=== PATIENT | female | born 1960 | race Caucasian/White ===

== ENCOUNTER 2016-08-21 12:06 | Emergency (ER) | payer OTHER ==
[2016-08-21] MEDS ORDERED: IBUPROFEN 600 MG TABLET PO ONE (13:44)
--- NOTE | 2016-08-21 13:44 | ER Document Report ---
ED Medical Screen (RME) - General Chief Complaint: Abdominal Pain Stated Complaint: ABDOMINAL PAIN Mode of Arrival: Ambulatory Information source: Patient Notes: Patient is complaining of intermittent severe right flank pain with associated fever (Tmax 102) since yesterday. Pain was sudden onset. Pain is worse with gas and with BM. Pain radiates to back. Has history of diverticulitis on left side. She has noted changes to her BM but no melena or BRBRP or dark tarry stools. Associated symptoms urinary urgency, incontinence, nausea but denies vomiting. She has not eaten anything since yesterday. She has tried motrin 800 mg which did not take the pain away but did provide relief enough to sleep. TRAVEL OUTSIDE OF THE [place] IN LAST 30 DAYS: No - Related Data Allergies/Adverse Reactions: metronidazole [From Flagyl] Allergy (Severe, Verified 05/22/16 14:41) Metronidazole HCl [From Flagyl] Allergy (Severe, Verified 05/22/16 14:41) amoxicillin trihydrate [From Augmentin] Allergy (Verified 05/22/16 14:41) amphetamine sulfate [From Adderall] Allergy (Verified 05/22/16 14:41) ciprofloxacin [From Cipro] Allergy (Verified 05/22/16 14:41) desloratadine [From Clarinex] Allergy (Verified 05/22/16 14:41) dextroamphetamine [From Adderall] Allergy (Verified 05/22/16 14:41) fluticasone propionate [From Advair Diskus] Allergy (Verified 05/22/16 14:41) iodine [Iodine] Allergy (Verified 05/22/16 14:41) lisinopril [Lisinopril] Allergy (Verified 05/22/16 14:41) losartan [Losartan] Allergy (Verified 05/22/16 14:41) Potassium Clavulanate * [From Augmentin] Allergy (Verified 05/22/16 14:41) salmeterol xinafoate [From Advair Diskus] Allergy (Verified 05/22/16 14:41) Shellfish * [Shellfish] Allergy (Verified 05/22/16 14:41) oxymorphone HCl [From Opana] Adverse Reaction (Verified 05/22/16 14:41) aption Allergy (Uncoded 05/22/16 14:42) vicapro Adverse Reaction (Uncoded 05/22/16 14:41) Past Medical History - General Last Menstrual Period: in menapuase now with occasional irregular periods - Social History Frequency of alcohol use: None Drug Abuse: None - Past Medical History Cardiac Medical History: Reports: Hx Hypertension Denies: Hx Coronary Artery Disease, Hx Heart Attack Pulmonary Medical History: Reports: Hx Asthma Denies: Hx Bronchitis, Hx COPD, Hx Pneumonia Neurological Medical History: Reports: Hx Seizures. Denies: Hx Cerebrovascular Accident Endocrine Medical History: Reports: Hx Diabetes Mellitus Type 2 GI Medical History: Reports: Hx Gastroesophageal Reflux Disease, Hx Irritable Bowel Musculoskeltal Medical History: Reports Hx Arthritis - LEFT ANKLE ARTHRITIS/ LOWER BACK Psychiatric Medical History: Denies: Hx Depression Traumatic Medical History: Reports: Hx Fractures Past Surgical History: Reports: Hx Cholecystectomy - 2007, Hx Orthopedic Surgery - L leg surgery 2008, Hx Tubal Ligation. Denies: Hx Pacemaker - Immunizations Hx Diphtheria, Pertussis, Tetanus Vaccination: - PATIENT DENIES Review of Systems - Review of Systems Constitutional: See HPI Gastrointestinal: See HPI Genitourinary: See HPI Physical Exam - Vital signs Vitals: Temp Pulse Resp BP Pulse Ox 98.1 F 90 18 135/97 H 97 08/21/16 12:24 08/21/16 12:24 08/21/16 12:24 08/21/16 12:24 08/21/16 12:24 - Notes Notes: General: VSS, appears uncomfortable but no respiratory distress. Course - Re-evaluation Re-evalutation: 08/21/16 13:43 Patient seen and examined. Ordered urinalysis, lab work. Given PO motrin. - Vital Signs Vital signs: Temp Pulse Resp BP Pulse Ox 98.1 F 90 18 135/97 H 97 08/21/16 12:24 08/21/16 12:24 08/21/16 12:24 08/21/16 12:24 08/21/16 12:24
[2016-08-21 14:33] LABS: ABSOLUTE EOSINOPHILS # (AUTO) 0.1 10^3/uL (0.0-0.6); ABSOLUTE LYMPHOCYTES (AUTO) 2.6 10^3/uL (0.5-4.7); ABSOLUTE MONOCYTES (AUTO) 1.1 10^3/uL (0.1-1.4); ABSOLUTE NEUT (AUTO) 10.1 10^3/uL (1.7-8.2); BASOPHILS % (AUTO) 0.3 % (0-2); EOSINOPHILS % (AUTO) 0.5 % (0-6); HEMOGLOBIN 13.9 g/dL (12.0-15.5); HGB HCT DIFFERENCE 0.7; LYMPHOCYTES % (AUTO) 18.7 % (13-45); MEAN CORPUSCULAR HEMOGLOBIN 28.6 pg (27.0-33.4); MEAN CORPUSCULAR VOLUME 84 fl (80-97); MONOCYTES % (AUTO) 7.7 % (3-13); RED BLOOD COUNT 4.86 10^6/uL (3.72-5.28); RED CELL DISTRIBUTION WIDTH 14.4 % (11.5-14.0); SEGMENTED NEUTROPHILS % (AUTO) 72.8 % (42-78); WHITE BLOOD COUNT 13.9 10^3/uL (4.0-10.5)
[2016-08-21 14:39] LABS: APPEARANCE,URINE SLIGHTLY-CLOUDY; BILIRUBIN,URINE NEGATIVE (NEGATIVE); GLUCOSE, URINE NEGATIVE (NEGATIVE); KETONES,URINE NEGATIVE (NEGATIVE); LEUKOCYTE ESTERASE,URINE LARGE (NEGATIVE); NITRITE,URINE NEGATIVE (NEGATIVE); PROTEIN,URINE NEGATIVE (NEGATIVE); URINE SPECIFIC GRAVITY 1.017; UROBILINOGEN,URINE NEGATIVE mg/dL (<2.0)
[2016-08-21 14:52] LABS: ALANINE AMINOTRANSFERASE 46 U/L (9-52); ALBUMIN 4.2 g/dL (3.5-5.0); ALKALINE PHOSPHATASE 138 U/L (38-126); ANION GAP 15 (5-19); ASPARTATE AMINO TRANSFERASE 26 U/L (14-36); BILIRUBIN,TOTAL 0.8 mg/dL (0.2-1.3); BLOOD UREA NITROGEN 8 mg/dL (7-20); CALCIUM 9.2 mg/dL (8.4-10.2); CARBON DIOXIDE 28 mmol/L (22-30); CHLORIDE 100 mmol/L (98-107); CREATININE RESULT 0.85 mg/dL (0.52-1.25); GLUCOSE 129 mg/dL (75-110); LIPASE 34.2 U/L (23-300); POTASSIUM 4.1 mmol/L (3.6-5.0); SODIUM 142.5 mmol/L (137-145); TOTAL PROTEIN 7.3 g/dL (6.3-8.2)
--- NOTE | 2016-08-21 16:03 | ER Document Report ---
ED GI/ - General Mode of Arrival: Ambulatory Information source: Patient TRAVEL OUTSIDE OF THE [place] IN LAST 30 DAYS: No - HPI Patient complains to provider of: Abdominal pain Associated symptoms: Other - See above <ANGELICA CAMARGO - Last Filed: 08/21/16 16:34> <ANUM CLARK - Last Filed: 08/21/16 17:23> - General Chief Complaint: Abdominal Pain Stated Complaint: ABDOMINAL PAIN Notes: Patient is a 56 year old female, with a past medical history including diverticulitis and GERD, who presents to the emergency department complaining of abdominal pain onset yesterday afternoon. Patient reports that the pain began in her right upper quadrant and radiates into her lower abdomen and around her right lower back. Patient states that this pain has been occurring intermittently for about a year but today seems more intense. Patient also complains of a fever of 102 yesterday. PCP: DR. Sanz education analyst : Dr. Bob (ANGELICA CAMRAGO) - Related Data Allergies/Adverse Reactions: metronidazole [From Flagyl] Allergy (Severe, Verified 05/22/16 14:41) Metronidazole HCl [From Flagyl] Allergy (Severe, Verified 05/22/16 14:41) amoxicillin trihydrate [From Augmentin] Allergy (Verified 05/22/16 14:41) amphetamine sulfate [From Adderall] Allergy (Verified 05/22/16 14:41) ciprofloxacin [From Cipro] Allergy (Verified 05/22/16 14:41) desloratadine [From Clarinex] Allergy (Verified 05/22/16 14:41) dextroamphetamine [From Adderall] Allergy (Verified 05/22/16 14:41) fluticasone propionate [From Advair Diskus] Allergy (Verified 05/22/16 14:41) iodine [Iodine] Allergy (Verified 05/22/16 14:41) lisinopril [Lisinopril] Allergy (Verified 05/22/16 14:41) losartan [Losartan] Allergy (Verified 05/22/16 14:41) Potassium Clavulanate * [From Augmentin] Allergy (Verified 05/22/16 14:41) salmeterol xinafoate [From Advair Diskus] Allergy (Verified 05/22/16 14:41) Shellfish * [Shellfish] Allergy (Verified 05/22/16 14:41) oxymorphone HCl [From Opana] Adverse Reaction (Verified 05/22/16 14:41) aption Allergy (Uncoded 05/22/16 14:42) vicapro Adverse Reaction (Uncoded 05/22/16 14:41) Past Medical History - General Information source: Patient Last Menstrual Period: in menapuase now with occasional irregular periods - Social History Smoking Status: Never Smoker Frequency of alcohol use: None Drug Abuse: None Family History: Reviewed & Not Pertinent Patient has suicidal ideation: No Patient has homicidal ideation: No - Past Medical History Cardiac Medical History: Reports: Hx Hypertension Pulmonary Medical History: Reports: Hx Asthma Neurological Medical History: Reports: Hx Seizures Endocrine Medical History: Reports: Hx Diabetes Mellitus Type 2 GI Medical History: Reports: Hx Diverticulitis, Hx Gastroesophageal Reflux Disease, Hx Irritable Bowel Musculoskeltal Medical History: Reports Hx Arthritis - LEFT ANKLE ARTHRITIS/ LOWER BACK Traumatic Medical History: Reports: Hx Fractures Past Surgical History: Reports: Hx Cholecystectomy - 2007, Hx Orthopedic Surgery - L leg surgery 2008, Hx Tubal Ligation - Immunizations Hx Diphtheria, Pertussis, Tetanus Vaccination: - PATIENT DENIES <ANGELICA CAMARGO - Last Filed: 08/21/16 16:34> Review of Systems - Review of Systems Constitutional: See HPI, Fever EENT: No symptoms reported Cardiovascular: No symptoms reported Respiratory: No symptoms reported Gastrointestinal: See HPI, Abdominal pain Genitourinary: No symptoms reported Female Genitourinary: No symptoms reported Musculoskeletal: No symptoms reported Skin: No symptoms reported Hematologic/Lymphatic: No symptoms reported Neurological/Psychological: No symptoms reported -: Yes All other systems reviewed and negative <ANGELICA CAMARGO - Last Filed: 08/21/16 16:34> Physical Exam - Vital signs Interpretation: Normal - General General appearance: Appears well, Alert - HEENT Head: Normocephalic, Atraumatic - Respiratory Respiratory status: No respiratory distress Chest status: Nontender Breath sounds: Normal Chest palpation: Normal - Cardiovascular Rhythm: Regular Heart sounds: Normal auscultation Murmur: No - Abdominal Inspection: Obese Distension: No distension Bowel sounds: Normal Tenderness: Tender - Tenderness to palpation of right lower quadrant and McBurney's point, no tenderness to suprapubic area over bladder Organomegaly: No organomegaly - Back Back: Tender - Lumbar muscles on right side are tender to palpation, CVA percussion on right is non-tender. - Extremities General upper extremity: Normal inspection General lower extremity: Normal inspection - Neurological Neuro grossly intact: Yes Cognition: Normal Orientation: AAOx4 [place] Coma Scale Eye Opening: Spontaneous Jean Coma Scale Verbal: Oriented Jean Coma Scale Motor: Obeys Commands [place] Coma Scale Total: 15 Speech: Normal - Psychological Associated symptoms: Normal affect, Normal mood - Skin Skin Temperature: Warm Skin Moisture: Dry Skin Color: Normal <ANGELICA CAMARGO - Last Filed: 08/21/16 16:34> Course - Laboratory Result Diagrams: 08/21/16 14:20 08/21/16 14:20 <ANGELICA CAMARGO - Last Filed: 08/21/16 16:34> - Laboratory Result Diagrams: 08/21/16 14:20 08/21/16 14:20 - Diagnostic Test Radiology reviewed: Image reviewed, Reports reviewed - CT scan shows sigmoid diverticulitis <ANUM CLARK - Last Filed: 08/21/16 17:23> - Re-evaluation Re-evalutation: 08/21/16 17:[address] scan shows sigmoid diverticulitis. She was here in December 2015 with similar findings. She admits that she has been treated several more times for diverticulitis as an outpatient from the office. She has never been referred to general surgery for resection of the involved area. (AUNM CLARK) - Vital Signs Vital signs: Temp Pulse Resp BP Pulse Ox 98.1 F 90 18 135/97 H 97 08/21/16 12:24 08/21/16 12:24 08/21/16 12:24 08/21/16 12:24 08/21/16 12:24 (ANGELICA CAMARGO) (ANUM CLARK) - Laboratory Laboratory results interpreted by la: 08/21/16 08/21/16 08/21/16 14:20 14:20 14:20 WBC 13.9 H RDW 14.4 H Absolute Neutrophils 10.1 H Glucose 129 H Alkaline Phosphatase 138 H Ur Leukocyte Esterase LARGE H (ANGELICA CAMARGO) (ANUM CLARK) Discharge <ANGELICA CAMARGO - Last Filed: 08/21/16 16:34> <ANUM CLARK - Last Filed: 08/21/16 17:23> - Discharge Clinical Impression: Sigmoid diverticulitis Urinary tract infection Qualifiers: Urinary tract infection type: site unspecified Hematuria presence: without hematuria Qualified Code(s): N39.0 - Urinary tract infection, site not specified Condition: Stable Disposition: HOME, SELF-CARE Additional Instructions: Diverticulitis: You have been diagnosed as having diverticulitis. This is an inflammation of a small pouch attached to the colon, called a diverticulum. Many of these small pouches can form on the colon as you get older. They are often caused by constipation. When inflamed or infected, symptoms arise -- usually abdominal pain, constipation or diarrhea, fever, and blood in the stool. Severe diverticulitis may require hospitalization. More mild cases are usually treated with antibiotics and clear liquid diet. As you improve, a diet low in residue (one which forms little stool) is prescribed. When you are better, you should eat a high-fiber diet. Stool softeners ( like Metamucil) are usually recommended. Call the doctor or go to the hospital if there is increasing pain, vomiting , high fever, large amounts of blood passed, or if bowel movements cease. TAKE THE MEDICATIONS PRESCRIBED. DRINK PLENTY OF FLUIDS. FOLLOW UP WITH [facility] TO DISCUSS OPERATIVE MANAGEMENT OF YOUR RECURRENT DIVERTICULITIS. FOLLOW UP WITH DR. SANZ THIS WEEK FOR RECHECK. RETURN TO THE EMERGENCY ROOM IF ANY NEW OR WORSENING SYMPTOMS. Prescriptions: Clindamycin HCl 300 mg PO TID #30 capsule Oxycodone HCl/Acetaminophen [Percocet 5-325 mg Tablet] 1 - 2 tab PO ASDIR PRN # 20 tablet PRN Reason: Referrals: TELLO SANZ DO [Primary Care Provider] - Follow up in 3-5 days [place] Attestation: 08/21/16 17:23 I personally performed the services described in the documentation, reviewed and edited the documentation which was dictated to the scribe in my presence, and it accurately records my words and actions. (ANUM CLARK) Vinhibe Documentation - Scribe Written by Jaden:: Jaden Valderrama, 08/21/16, 16:15 <ANGELICA CAMARGO - Last Filed: 08/21/16 16:34>
[2016-08-21] MEDS ORDERED: KETOROLAC TROMETHAMINE INJ/PF 30 MG/1 ML SDV IV ONE (16:04)
[2016-08-21] MEDS ORDERED: NORMAL SALINE 1000 ML 1,000 ML IV ONE (16:04)
[2016-08-21] MEDS ORDERED: CLINDAMYCIN 600 MG/D5W RTU 50 ML IV ONE (17:18)
[2016-08-21 18:06] VITALS: BP 117/69
== END 2016-08-21 18:16 | disposition home or self-care (01) ==
LOC: ER 12:06
DX: K57.32 Diverticulitis of large intestine without perforation or abscess without bleeding (principal); N39.0 Urinary tract infection, site not specified; R10.9 Unspecified abdominal pain; K21.9 Gastro-esophageal reflux disease without esophagitis; R10.11 Right upper quadrant pain; R10.30 Lower abdominal pain, unspecified; M54.5 Low back pain; R50.9 Fever, unspecified
CPT/HCPCS: 99284; 96361; 96375; 96365; 36415; 87086; 83690; 85025; 80053; 81001; 76380; J1885; J7030

== ENCOUNTER 2016-11-13 10:01 | Day surgery (SDC) | payer OTHER ==
[~2016-11-13 10:01] MED LIST: PROPOFOL INJ 200 MG/20 ML VIAL IV ONE
[2016-11-13 11:53] VITALS: BP 123/52
--- NOTE | 2016-11-13 13:13 | Operative Report ---
Operative Report DATE OF SURGERY: 11/13/16 Operative Report: The risks, benefits and alternatives of the procedure including risks of bleeding, perforation requiring surgery I expended patient detail informed consents obtained. Patient is taken back to the endoscopy suite and placed in a left, lateral decubital position. Timeout is called. Propofol medication is administered. A rectal examination was done which did not reveal any masses, tears or fissures. An Olympus was scope is inserted the patient's rectum. The scope was then gradually advanced all the way to the cecum. The cecum was identified by the usual anatomical landmarks of the ileocecal valve as well as the appendiceal office. Photodocumentation is obtained. The scope was then sequentially pulled back via the rest segments of the colon including the ascending colon, hepatic flexure, transverse colon, splenic flexure, descending colon and finally into the rectosigmoid portions of the colon. Retroflexion maneuvers performed. PREOPERATIVE DIAGNOSIS: Personal history of polyps. Abdominal pain, generalized. Change of bowel habits POSTOPERATIVE DIAGNOSIS: Internal hemorrhoids. Diverticulosis without any evidence of diverticulitis. Right-sided mucosal inflammation status post biopsy rule out lymphocytic, collagenous, microscopic colitis. OPERATION: Colonoscopy with biopsy SURGEON: DELFINA HAMMONDS ANESTHESIA: LMAC TISSUE REMOVED OR ALTERED: Colon specimens obtained COMPLICATIONS: None. ESTIMATED BLOOD LOSS: none. INTRAOPERATIVE FINDINGS: As described above. PROCEDURE: Patient tolerated procedure well. No immediate postprocedure complications are noted. Patient is discharged in good condition. Discharge date 11/13/2016. Discharge diet: Regular. Discharge activity: Regular. 2-3 week follow-up to discuss findings. Five-year surveillance colonoscopy. We'll await on biopsies. Patient is instructed to call the office or proceed to the emergency room should there be any further problems or questions.
== END 2016-11-13 11:50 | disposition home or self-care (01) ==
LOC: END 10:01
PROVIDERS: ATTEND Internal Medicine Gastroenterology
PROC: 0DBF8ZX Excision of Right Large Intestine, Via Natural or Artificial Opening Endoscopic, Diagnostic (ICD-10-PCS; principal; 2016-11-13 11:30)
DX: K57.30 Diverticulosis of large intestine without perforation or abscess without bleeding (principal); K52.9 Noninfective gastroenteritis and colitis, unspecified; K64.8 Other hemorrhoids; Z86.010 Personal history of colon polyps; K76.0 Fatty (change of) liver, not elsewhere classified; I10 Essential (primary) hypertension; E11.9 Type 2 diabetes mellitus without complications
CPT/HCPCS: 45380; 82962; 88305 ×2; J2704; 810

== ENCOUNTER 2016-12-05 17:48 | Emergency (ER) | payer OTHER ==
--- NOTE | 2016-12-05 18:21 | ER Document Report ---
ED Medical Screen (RME) - General Chief Complaint: Chest Pain Stated Complaint: CHEST PAIN Time seen by provider: 18:18 Mode of Arrival: Ambulatory Information source: Patient TRAVEL OUTSIDE OF THE [place] IN LAST 30 DAYS: No - HPI Patient complains to provider of: chest pain, generalized weakness, possible seizures Onset: This morning Onset/Duration: Gradual Quality of pain: Achy Severity: Moderate Associated Symptoms: Body/muscle aches, Shortness of breath Exacerbated by: Denies Relieved by: Denies Similar symptoms previously: No Recently seen / treated by doctor: No Notes: 12/05/16 18:19 56-year-old female presents to emergency room complaining of 3 episodes of body jumping or jerking that occurred while in her sleep early in the morning this morning, and then throughout the day today she reports feeling "off", with generalized fatigue, some chest heaviness and nausea, patient has a history of seizure disorder as well as diabetes, hypertension, GERD - Related Data Allergies/Adverse Reactions: amoxicillin trihydrate [From Augmentin] Allergy (Severe, Verified 12/05/16 18:07 ) THROAT SWELLS AND BECOMES HOARSE amphetamine sulfate [From Adderall] Allergy (Severe, Verified 12/05/16 18:07) FACIAL SWELLING, LOST VOICE, THROAT SWELLING ciprofloxacin [From Cipro] Allergy (Severe, Verified 12/05/16 18:07) THROAT BECAME HOARSE,LOST VOICE, NUMBNESS metronidazole [From Flagyl] Allergy (Severe, Verified 12/05/16 18:07) THROAT BECAME HOARSE, LOST VOICE, THROAT SWELLS Metronidazole HCl [From Flagyl] Allergy (Severe, Verified 12/05/16 18:07) THROAT BECAME HOARSE, LOST VOICE, THROAT SWELLS desloratadine [From Clarinex] Allergy (Intermediate, Verified 12/05/16 18:07) EYES BURNING, ITCHING fluticasone propionate [From Advair Diskus] Allergy (Intermediate, Verified 18:07) HAIRY TONGUE, THROAT RAW Shellfish * [Shellfish] Allergy (Intermediate, Verified 12/05/16 18:07) THROAT SCRATCHY,SWELLING OF FACE, LIPS TINGLY lisinopril [Lisinopril] Allergy (Mild, Verified 12/05/16 18:07) TEETH AND TONGUE FELT FUNNY losartan [Losartan] Allergy (Mild, Verified 12/05/16 18:07) HOARSENESS iodine [Iodine] Allergy (Unknown, Verified 12/05/16 18:07) UNKNOWN dextroamphetamine [From Adderall] Allergy (Verified 12/05/16 18:07) Fish Containing Products Allergy (Verified 12/05/16 18:07) Potassium Clavulanate * [From Augmentin] Allergy (Verified 12/05/16 18:07) salmeterol xinafoate [From Advair Diskus] Allergy (Verified 12/05/16 18:07) oxymorphone HCl [From Opana] Adverse Reaction (Severe, Verified 12/05/16 18:07) VERY SICK aption Allergy (Severe, Uncoded 11/13/16 09:44) LOST VOICE, HOARSENESS, SEVERE SINUS PROBLEMS vicapro Adverse Reaction (Severe, Uncoded 11/13/16 09:44) MADE VERY SICK Past Medical History - Past Medical History Cardiac Medical History: Reports: Hx Hypertension Denies: Hx Coronary Artery Disease, Hx Heart Attack Pulmonary Medical History: Reports: Hx Asthma Denies: Hx Bronchitis, Hx COPD, Hx Pneumonia Neurological Medical History: Reports: Hx Seizures - LAST ONE MONTH AGO. Denies : Hx Cerebrovascular Accident Endocrine Medical History: Reports: Hx Diabetes Mellitus Type 2 Renal/ Medical History: Denies: Hx Peritoneal Dialysis GI Medical History: Reports: Hx Diverticulitis, Hx Gastroesophageal Reflux Disease, Hx Irritable Bowel Musculoskeltal Medical History: Reports Hx Arthritis - LEFT ANKLE ARTHRITIS/ LOWER BACK Psychiatric Medical History: Denies: Hx Depression Traumatic Medical History: Reports: Hx Fractures Past Surgical History: Reports: Hx Cholecystectomy - 2007, Hx Orthopedic Surgery - L leg surgery 2008, Hx Tubal Ligation. Denies: Hx Pacemaker - Immunizations Hx Diphtheria, Pertussis, Tetanus Vaccination: - PATIENT DENIES Physical Exam - Vital signs Vitals: Temp Pulse Resp BP Pulse Ox 97.2 F 78 16 146/75 H 98 12/05/16 18:04 12/05/16 18:04 12/05/16 18:04 12/05/16 18:04 12/05/16 18:04 Course - Vital Signs Vital signs: Temp Pulse Resp BP Pulse Ox 97.2 F 78 16 146/75 H 98 12/05/16 18:04 12/05/16 18:04 12/05/16 18:04 12/05/16 18:04 12/05/16 18:04
[2016-12-05 18:48] LABS: ABSOLUTE EOSINOPHILS # (AUTO) 0.2 10^3/uL (0.0-0.6); ABSOLUTE LYMPHOCYTES (AUTO) 2.9 10^3/uL (0.5-4.7); ABSOLUTE MONOCYTES (AUTO) 0.7 10^3/uL (0.1-1.4); ABSOLUTE NEUT (AUTO) 5.2 10^3/uL (1.7-8.2); BASOPHILS % (AUTO) 0.4 % (0-2); HEMATOCRIT 38.3 % (36.0-47.0); HEMOGLOBIN 13.1 g/dL (12.0-15.5); LYMPHOCYTES % (AUTO) 32.8 % (13-45); MEAN CORPUSCULAR HGB CONC 34.3 g/dL (32.0-36.0); MEAN CORPUSCULAR VOLUME 85 fl (80-97); MONOCYTES % (AUTO) 7.3 % (3-13); RED BLOOD COUNT 4.52 10^6/uL (3.72-5.28); RED CELL DISTRIBUTION WIDTH 13.7 % (11.5-14.0); SEGMENTED NEUTROPHILS % (AUTO) 57.5 % (42-78)
[2016-12-05 19:01] LABS: ALANINE AMINOTRANSFERASE 44 U/L (9-52); ALKALINE PHOSPHATASE 133 U/L (38-126); ANION GAP 13 (5-19); ASPARTATE AMINO TRANSFERASE 32 U/L (14-36); BILIRUBIN,DIRECT 0.3 mg/dL (0.0-0.4); BILIRUBIN,TOTAL 0.5 mg/dL (0.2-1.3); BLOOD UREA NITROGEN 10 mg/dL (7-20); CARBON DIOXIDE 27 mmol/L (22-30); CHLORIDE 102 mmol/L (98-107); CREATINE KINASE 43 U/L (30-135); CREATININE RESULT 0.78 mg/dL (0.52-1.25); GLUCOSE 170 mg/dL (75-110); MAGNESIUM 1.9 mg/dL (1.6-2.3); POTASSIUM 4.2 mmol/L (3.6-5.0); SODIUM 141.9 mmol/L (137-145); TOTAL PROTEIN 7.2 g/dL (6.3-8.2)
[2016-12-05 19:04] LABS: APPEARANCE,URINE SLIGHTLY-CLOUDY; BILIRUBIN,URINE NEGATIVE (NEGATIVE); GLUCOSE, URINE NEGATIVE (NEGATIVE); KETONES,URINE NEGATIVE (NEGATIVE); LEUKOCYTE ESTERASE,URINE MODERATE (NEGATIVE); NITRITE,URINE NEGATIVE (NEGATIVE); PROTEIN,URINE NEGATIVE (NEGATIVE); URINE SPECIFIC GRAVITY 1.006; UROBILINOGEN,URINE NEGATIVE mg/dL (<2.0)
[2016-12-05 19:15] LABS: CREATINE KINASE MB < 0.22 ng/mL (<4.55); TROPONIN I < 0.012 ng/mL
--- NOTE | 2016-12-05 19:32 | EKG REPORT ---
SEVERITY:- ABNORMAL ECG - SINUS RHYTHM NONSPECIFIC T ABNORMALITIES, ANTERIOR LEADS : Confirmed by: Guadalupe Guallpa MD 05-Dec-2016 19:31:25
--- NOTE | 2016-12-05 21:47 | ER Document Report ---
ED General - General Chief Complaint: Chest Pain Stated Complaint: CHEST PAIN Time seen by provider: 21:40 Mode of Arrival: Ambulatory Notes: Patient is a 56-year-old female that comes emergency department for several complaints, she states that she woke up this morning to feeling a jerking sensation of her body, states this happened a total of 3 times this morning and not happened since, she states she felt shaky earlier and states her body felt "a bit off" including her chest. She denies any chest pain, she states she felt a wave of nausea earlier which resolved, she states she just feels generally fatigued. She denies any shortness of breath. She denies any current symptoms, states now she feels great. She denies any fevers or chills. Past medical history of partial seizures, type II diabetes, hypertension, GERD , she does follow with neurology. TRAVEL OUTSIDE OF THE [place] IN LAST 30 DAYS: No - Related Data Allergies/Adverse Reactions: amoxicillin trihydrate [From Augmentin] Allergy (Severe, Verified 12/05/16 18:07 ) THROAT SWELLS AND BECOMES HOARSE amphetamine sulfate [From Adderall] Allergy (Severe, Verified 12/05/16 18:07) FACIAL SWELLING, LOST VOICE, THROAT SWELLING ciprofloxacin [From Cipro] Allergy (Severe, Verified 12/05/16 18:07) THROAT BECAME HOARSE,LOST VOICE, NUMBNESS metronidazole [From Flagyl] Allergy (Severe, Verified 12/05/16 18:07) THROAT BECAME HOARSE, LOST VOICE, THROAT SWELLS Metronidazole HCl [From Flagyl] Allergy (Severe, Verified 12/05/16 18:07) THROAT BECAME HOARSE, LOST VOICE, THROAT SWELLS desloratadine [From Clarinex] Allergy (Intermediate, Verified 12/05/16 18:07) EYES BURNING, ITCHING fluticasone propionate [From Advair Diskus] Allergy (Intermediate, Verified 18:07) HAIRY TONGUE, THROAT RAW Shellfish * [Shellfish] Allergy (Intermediate, Verified 12/05/16 18:07) THROAT SCRATCHY,SWELLING OF FACE, LIPS TINGLY lisinopril [Lisinopril] Allergy (Mild, Verified 12/05/16 18:07) TEETH AND TONGUE FELT FUNNY losartan [Losartan] Allergy (Mild, Verified 12/05/16 18:07) HOARSENESS iodine [Iodine] Allergy (Unknown, Verified 12/05/16 18:07) UNKNOWN dextroamphetamine [From Adderall] Allergy (Verified 12/05/16 18:07) Fish Containing Products Allergy (Verified 12/05/16 18:07) Potassium Clavulanate * [From Augmentin] Allergy (Verified 12/05/16 18:07) salmeterol xinafoate [From Advair Diskus] Allergy (Verified 12/05/16 18:07) oxymorphone HCl [From Opana] Adverse Reaction (Severe, Verified 12/05/16 18:07) VERY SICK aption Allergy (Severe, Uncoded 11/13/16 09:44) LOST VOICE, HOARSENESS, SEVERE SINUS PROBLEMS vicapro Adverse Reaction (Severe, Uncoded 11/13/16 09:44) MADE VERY SICK Past Medical History - General Information source: Patient - Social History Smoking Status: Never Smoker Frequency of alcohol use: None Drug Abuse: None Lives with: Family Family History: Reviewed & Not Pertinent Patient has suicidal ideation: No Patient has homicidal ideation: No - Past Medical History Cardiac Medical History: Reports: Hx Hypertension Denies: Hx Coronary Artery Disease, Hx Heart Attack Pulmonary Medical History: Reports: Hx Asthma Denies: Hx Bronchitis, Hx COPD, Hx Pneumonia Neurological Medical History: Reports: Hx Seizures - LAST ONE MONTH AGO. Denies : Hx Cerebrovascular Accident Endocrine Medical History: Reports: Hx Diabetes Mellitus Type 2 Renal/ Medical History: Denies: Hx Peritoneal Dialysis GI Medical History: Reports: Hx Diverticulitis, Hx Gastroesophageal Reflux Disease, Hx Irritable Bowel Musculoskeltal Medical History: Reports Hx Arthritis - LEFT ANKLE ARTHRITIS/ LOWER BACK Psychiatric Medical History: Denies: Hx Depression Traumatic Medical History: Reports: Hx Fractures Past Surgical History: Reports: Hx Cholecystectomy - 2007, Hx Orthopedic Surgery - L leg surgery 2008, Hx Tubal Ligation. Denies: Hx Pacemaker - Immunizations Hx Diphtheria, Pertussis, Tetanus Vaccination: - PATIENT DENIES Review of Systems - Review of Systems Constitutional: See HPI EENT: No symptoms reported Cardiovascular: See HPI Respiratory: No symptoms reported Gastrointestinal: No symptoms reported Genitourinary: No symptoms reported Female Genitourinary: No symptoms reported Musculoskeletal: See HPI Skin: No symptoms reported Hematologic/Lymphatic: No symptoms reported Neurological/Psychological: See HPI Physical Exam - Vital signs Vitals: Temp Pulse Resp BP Pulse Ox 97.2 F 78 16 146/75 H 98 12/05/16 18:04 12/05/16 18:04 12/05/16 18:04 12/05/16 18:04 12/05/16 18:04 Interpretation: Normal - General General appearance: Appears well, Alert In distress: None - HEENT Head: Normocephalic, Atraumatic Eyes: Normal Conjunctiva: Normal Extraocular movements intact: Yes Eyelashes: Normal Pupils: PERRL Nasal: Normal Mouth/Lips: Normal Mucous membranes: Normal Pharynx: Normal Neck: Normal - Respiratory Respiratory status: No respiratory distress Chest status: Nontender Breath sounds: Normal. No: Decreased air movement, Wheezing Chest palpation: Normal - Cardiovascular Rhythm: Regular. No: Tachycardia Heart sounds: Normal auscultation, S1 appreciated, S2 appreciated Murmur: No - Abdominal Inspection: Normal Distension: No distension Bowel sounds: Normal Tenderness: Nontender. No: Tender, Guarding Organomegaly: No organomegaly - Back Back: Normal, Nontender. No: Tender - Extremities General upper extremity: Normal inspection, Nontender, Normal color, Normal ROM , Normal temperature General lower extremity: Normal inspection, Nontender, Normal color, Normal ROM , Normal temperature, Normal weight bearing. No: Fercho's sign - Neurological Neuro grossly intact: Yes Cognition: Normal Orientation: AAOx4 Jean Coma Scale Eye Opening: Spontaneous Jean Coma Scale Verbal: Oriented Jean Coma Scale Motor: Obeys Commands Jean Coma Scale Total: 15 Speech: Normal Cranial nerves: Normal Cerebellar coordination: Normal Motor strength normal: LUE, RUE, LLE, RLE Additional motor exam normals: Equal top coater Sensory: Normal - Psychological Associated symptoms: Normal affect, Normal mood - Skin Skin Temperature: Warm Skin Moisture: Dry Skin Color: Normal Course - Re-evaluation Re-evalutation: 12/05/16 21:53 EKG showing sinus rhythm, no ST segment changes, Anterior T-wave inversions again present. Patient actually with very vague nonspecific complaints, does not complain of any chest pain or symptoms suggesting ACS, PE, or CVA. Normal neurological exam. Pelvic, alert, talkative. CBC, chemistry, chest x-ray with no acute abnormalities. Patient with soft benign abdomen, no neurological deficits, no current complaints. Urinalysis shows moderate leukocyte esterase with white blood cells, no bacteria, nitrates noted, urine culture placed. I discussed with patient, she states she struggles with this frequently, patient also states that she is being treated for irritable bowel currently. Result patient will be placed on Macrobid for a few days. Patient has he has good follow-up with neurology, gastroenterology, primary care. Discussed all workup details, discussed return precautions, at this point. She will be discharged for follow-up. Patient and significant other state satisfaction and agreement. - Vital Signs Vital signs: Temp Pulse Resp BP Pulse Ox 97.2 F 72 16 118/47 L 94 12/05/16 18:04 12/05/16 22:01 12/05/16 22:01 12/05/16 22:01 12/05/16 22:01 - Laboratory Result Diagrams: 12/05/16 18:25 12/05/16 18:25 Laboratory results interpreted by me: 12/05/16 12/05/16 18:25 18:25 Glucose 170 H Alkaline Phosphatase 133 H Ur Leukocyte Esterase MODERATE H Discharge - Discharge Clinical Impression: Shakes, Abnormal urinalysis Condition: Stable Disposition: HOME, SELF-CARE Additional Instructions: Your evaluation and laboratory workup does not show any acute findings. Your urinalysis again shows white blood cells and leukocyte esterase, we have a culture growing in our lab, take the Macrobid as directed. Follow-up with neurology for additional evaluation and treatment. Return to emergency department for any concerning or worsening symptoms including numbness or weakness on one side, fever, chest pain, vomiting, etc. Prescriptions: Nitrofurantoin/Nitrofuran Mac [Macrobid 100 mg Capsule] 1 tab PO BID #6 capsule Referrals: TELLO BURKS DO [Primary Care Provider] - Follow up as needed
[2016-12-05] MEDS ORDERED: NITROFURANTOIN MONOHYD/M-CRYST 100 MG CAPSULE PO ONE (21:53)
[2016-12-05 22:01] VITALS: BP 118/47
== END 2016-12-05 22:00 | disposition home or self-care (01) ==
LOC: ER 17:48
DX: R25.8 Other abnormal involuntary movements (principal); R82.99 Other abnormal findings in urine; R09.89 Other specified symptoms and signs involving the circulatory and respiratory systems; R53.83 Other fatigue; K58.9 Irritable bowel syndrome, unspecified; I10 Essential (primary) hypertension; E11.9 Type 2 diabetes mellitus without complications; J45.909 Unspecified asthma, uncomplicated; Z88.0 Allergy status to penicillin; Z88.8 Allergy status to other drugs, medicaments and biological substances; Z88.1 Allergy status to other antibiotic agents; Z91.013 Allergy to seafood
CPT/HCPCS: 93005; 99285; 36415; 87086; 82553; 82550; 83735; 85025; 80053; 81001; 84484; 71020; 93010; J8499

== ENCOUNTER → 2018-03-26 | Outpatient (CLI) | payer OTHER ==
--- NOTE | 2018-03-26 16:57 | RADIOLOGY REPORT (SQ) ---
EXAM DESCRIPTION: CHEST PA/LATERAL COMPLETED DATE/TIME: 03/26/2018 4:39 pm REASON FOR STUDY: PLEURODYNIA COMPARISON: None. EXAM PARAMETERS: NUMBER OF VIEWS: two views TECHNIQUE: Digital Frontal and Lateral radiographic views of the chest acquired. RADIATION DOSE: NA LIMITATIONS: none FINDINGS: LUNGS AND PLEURA: No opacities, masses or pneumothorax. No pleural effusion. MEDIASTINUM AND HILAR STRUCTURES: No masses or contour abnormalities. HEART AND VASCULAR STRUCTURES: Heart normal size. No evidence for failure. BONES: No acute findings. HARDWARE: None in the chest. OTHER: No other significant finding. IMPRESSION: NO SIGNIFICANT RADIOGRAPHIC FINDING IN THE CHEST. TECHNICAL DOCUMENTATION: JOB ID: [id number] [employer] [place]- All Rights Reserved Reading location - IP/workstation name: [email or web address]
== END ==
LOC: OD 16:28
PROVIDERS: ATTEND Family Medicine
DX: R07.81 Pleurodynia (principal)
CPT/HCPCS: 71046

== ENCOUNTER 2018-10-20 15:49 | Emergency (ER) | payer OTHER ==
--- NOTE | 2018-10-20 16:22 | ER Document Report ---
ED Medical Screen (RME) - General Chief Complaint: Chest Pain Stated Complaint: CHEST AND BACK PAIN Time Seen by Provider: 10/20/18 16:21 Primary Care Provider: TELLO BURKS DO [Primary Care Provider] - Follow up as needed Mode of Arrival: Ambulatory Information source: Patient TRAVEL OUTSIDE OF THE [place] IN LAST 30 DAYS: No - HPI Patient complains to provider of: cp Onset: Yesterday - pt with onset of SSCP for the past 2 days. Took ASA this am - Related Data Allergies/Adverse Reactions: amoxicillin trihydrate [From Augmentin] Allergy (Severe, Verified 12/05/16 18:07) THROAT SWELLS AND BECOMES HOARSE amphetamine sulfate [From Adderall] Allergy (Severe, Verified 12/05/16 18:07) FACIAL SWELLING, LOST VOICE, THROAT SWELLING ciprofloxacin [From Cipro] Allergy (Severe, Verified 12/05/16 18:07) THROAT BECAME HOARSE,LOST VOICE, NUMBNESS metronidazole [From Flagyl] Allergy (Severe, Verified 12/05/16 18:07) THROAT BECAME HOARSE, LOST VOICE, THROAT SWELLS Metronidazole HCl [From Flagyl] Allergy (Severe, Verified 12/05/16 18:07) THROAT BECAME HOARSE, LOST VOICE, THROAT SWELLS desloratadine [From Clarinex] Allergy (Intermediate, Verified 12/05/16 18:07) EYES BURNING, ITCHING fluticasone propionate [From Advair Diskus] Allergy (Intermediate, Verified 12/05/16 18:07) HAIRY TONGUE, THROAT RAW Shellfish * [Shellfish] Allergy (Intermediate, Verified 12/05/16 18:07) THROAT SCRATCHY,SWELLING OF FACE, LIPS TINGLY lisinopril [Lisinopril] Allergy (Mild, Verified 12/05/16 18:07) TEETH AND TONGUE FELT FUNNY losartan [Losartan] Allergy (Mild, Verified 12/05/16 18:07) HOARSENESS iodine [Iodine] Allergy (Unknown, Verified 12/05/16 18:07) UNKNOWN dextroamphetamine [From Adderall] Allergy (Verified 12/05/16 18:07) Fish Containing Products Allergy (Verified 12/05/16 18:07) Potassium Clavulanate * [From Augmentin] Allergy (Verified 12/05/16 18:07) salmeterol xinafoate [From Advair Diskus] Allergy (Verified 12/05/16 18:07) oxymorphone HCl [From Opana] Adverse Reaction (Severe, Verified 12/05/16 18:07) VERY SICK aption Allergy (Severe, Uncoded 11/13/16 09:44) LOST VOICE, HOARSENESS, SEVERE SINUS PROBLEMS vicapro Adverse Reaction (Severe, Uncoded 11/13/16 09:44) MADE VERY SICK Past Medical History - Past Medical History Cardiac Medical History: Reports: Hx Hypertension Denies: Hx Coronary Artery Disease, Hx Heart Attack Pulmonary Medical History: Reports: Hx Asthma Denies: Hx Bronchitis, Hx COPD, Hx Pneumonia Neurological Medical History: Reports: Hx Seizures. Denies: Hx Cerebrovascular Accident Endocrine Medical History: Reports: Hx Diabetes Mellitus Type 2 Renal/ Medical History: Denies: Hx Peritoneal Dialysis GI Medical History: Reports: Hx Diverticulitis, Hx Gastroesophageal Reflux Disease, Hx Irritable Bowel Musculoskeltal Medical History: Reports Hx Arthritis - LEFT ANKLE ARTHRITIS/LOWER BACK Psychiatric Medical History: Denies: Hx Depression Traumatic Medical History: Reports: Hx Fractures Past Surgical History: Reports: Hx Cholecystectomy - 2007, Hx Orthopedic Surgery - L leg surgery 2008, Hx Tubal Ligation. Denies: Hx Pacemaker - Immunizations Hx Diphtheria, Pertussis, Tetanus Vaccination: - PATIENT DENIES Physical Exam - Vital signs Vitals: Temp Pulse Resp BP Pulse Ox 98.2 F 74 18 134/67 H 94 10/20/18 16:08 10/20/18 16:08 10/20/18 16:08 10/20/18 16:08 10/20/18 16:08 Course - Vital Signs Vital signs: Temp Pulse Resp BP Pulse Ox 98.2 F 74 18 134/67 H 94 10/20/18 16:08 10/20/18 16:08 10/20/18 16:08 10/20/18 16:08 10/20/18 16:08 Doctor's Discharge - Discharge Referrals: TELLO BURKS DO [Primary Care Provider] - Follow up as needed
[2018-10-20 16:56] LABS: ABSOLUTE EOSINOPHILS # (AUTO) 0.2 10^3/uL (0.0-0.6); ABSOLUTE LYMPHOCYTES (AUTO) 2.8 10^3/uL (0.5-4.7); ABSOLUTE MONOCYTES (AUTO) 0.6 10^3/uL (0.1-1.4); ABSOLUTE NEUT (AUTO) 6.1 10^3/uL (1.7-8.2); BASOPHILS % (AUTO) 0.5 % (0-2); EOSINOPHILS % (AUTO) 2.5 % (0-6); HEMATOCRIT 40.3 % (36.0-47.0); HEMOGLOBIN 13.6 g/dL (12.0-15.5); LYMPHOCYTES % (AUTO) 28.6 % (13-45); MEAN CORPUSCULAR HEMOGLOBIN 28.6 pg (27.0-33.4); MEAN CORPUSCULAR HGB CONC 33.7 g/dL (32.0-36.0); MEAN CORPUSCULAR VOLUME 85 fl (80-97); MONOCYTES % (AUTO) 5.8 % (3-13); PLATELET COUNT 337 10^3/uL (150-450); RED BLOOD COUNT 4.75 10^6/uL (3.72-5.28); SEGMENTED NEUTROPHILS % (AUTO) 62.6 % (42-78); TOTAL CELLS COUNTED % (AUTO) 100 %; WHITE BLOOD COUNT 9.7 10^3/uL (4.0-10.5)
--- NOTE | 2018-10-20 16:57 | RADIOLOGY REPORT (SQ) ---
EXAM DESCRIPTION: CHEST 2 VIEWS COMPLETED DATE/TIME: 10/20/2018 4:50 pm REASON FOR STUDY: cp COMPARISON: 12/05/2016 EXAM PARAMETERS: NUMBER OF VIEWS: two views TECHNIQUE: Digital Frontal and Lateral radiographic views of the chest acquired. RADIATION DOSE: NA LIMITATIONS: none FINDINGS: LUNGS AND PLEURA: No opacities, masses or pneumothorax. No pleural effusion. MEDIASTINUM AND HILAR STRUCTURES: No masses or contour abnormalities. HEART AND VASCULAR STRUCTURES: Heart normal size. No evidence for failure. BONES: No acute findings. HARDWARE: None in the chest. OTHER: No other significant finding. IMPRESSION: NO ACUTE RADIOGRAPHIC FINDING IN THE CHEST. TECHNICAL DOCUMENTATION: JOB ID: [id number] [employer]- All Rights Reserved Reading location - IP/workstation name: [email or web address]
[2018-10-20 17:11] LABS: ALANINE AMINOTRANSFERASE 36 U/L (9-52); ALBUMIN 4.1 g/dL (3.5-5.0); ALKALINE PHOSPHATASE 148 U/L (38-126); ANION GAP 10 (5-19); ASPARTATE AMINO TRANSFERASE 28 U/L (14-36); BILIRUBIN,DIRECT 0.2 mg/dL (0.0-0.4); BILIRUBIN,TOTAL 0.2 mg/dL (0.2-1.3); BLOOD UREA NITROGEN 10 mg/dL (7-20); CALCIUM 9.3 mg/dL (8.4-10.2); CARBON DIOXIDE 29 mmol/L (22-30); CHLORIDE 103 mmol/L (98-107); CREATINE KINASE 32 U/L (30-135); GLUCOSE 111 mg/dL (75-110); POTASSIUM 4.7 mmol/L (3.6-5.0); SODIUM 141.6 mmol/L (137-145)
[2018-10-20 17:36] LABS: CREATINE KINASE MB < 0.22 ng/mL (<4.55); TROPONIN I < 0.012 ng/mL
[2018-10-20] MEDS ORDERED: DIPHENHYDRAMINE HCL 50 MG/ML VIAL IV ONE (19:45)
--- NOTE | 2018-10-20 20:58 | RADIOLOGY REPORT (SQ) ---
CT CHEST ANGIOGRAPHY WITHOUT THEN WITH IV CONTRAST HISTORY: Shortness of breath. COMPARISON: None. TECHNIQUE: CT angiogram of the chest with IV contrast. 3-D MIP images were obtained in coronal and sagittal reconstructions. This exam was performed according to our departmental dose-optimization program, which includes automated exposure control, adjustment of the mA and/or kV according to patient size and/or use of iterative reconstruction technique. FINDINGS: No filling defects are identified in the pulmonary trunk, main left and right pulmonary arteries, or the segmental branches. No aortic aneurysm or dissection is seen. The thyroid gland is normal. No mediastinal or hilar adenopathy. The heart size is normal without pericardial effusion. No consolidation, pleural effusion, or pneumothorax is identified. The visualized upper abdomen demonstrates cholecystectomy clips but no acute findings. There are mild degenerative changes of the spine. IMPRESSION: No acute pulmonary embolism.
--- NOTE | 2018-10-20 21:38 | ER Document Report ---
ED General - General Chief Complaint: Chest Pain Stated Complaint: CHEST AND BACK PAIN Time Seen by Provider: 10/20/18 16:21 Primary Care Provider: TELLO SANZ DO [Primary Care Provider] - 10/22/18 Mode of Arrival: Ambulatory Information source: Patient Notes: This is a 58-year-old female who presents to the emergency room with chest wall discomfort for the past 2 days. Patient states that the pain is worse with deep inspiration. Patient states that the pain is worse with movement and cough. Patient looks visibly uncomfortable when moving to get out of the stretcher. TRAVEL OUTSIDE OF THE [place] IN LAST 30 DAYS: No - HPI Onset: Last week Onset/Duration: Gradual Quality of pain: Sharp Severity: Moderate Pain Level: 2 Associated symptoms: Other - Chest wall pain. denies: Chest pain, Fever, Shortness of breath Exacerbated by: Movement Relieved by: Denies Similar symptoms previously: Yes Recently seen / treated by doctor: No - Related Data Allergies/Adverse Reactions: amoxicillin trihydrate [From Augmentin] Allergy (Severe, Verified 12/05/16 18:07) THROAT SWELLS AND BECOMES HOARSE amphetamine sulfate [From Adderall] Allergy (Severe, Verified 12/05/16 18:07) FACIAL SWELLING, LOST VOICE, THROAT SWELLING ciprofloxacin [From Cipro] Allergy (Severe, Verified 12/05/16 18:07) THROAT BECAME HOARSE,LOST VOICE, NUMBNESS metronidazole [From Flagyl] Allergy (Severe, Verified 12/05/16 18:07) THROAT BECAME HOARSE, LOST VOICE, THROAT SWELLS Metronidazole HCl [From Flagyl] Allergy (Severe, Verified 12/05/16 18:07) THROAT BECAME HOARSE, LOST VOICE, THROAT SWELLS desloratadine [From Clarinex] Allergy (Intermediate, Verified 12/05/16 18:07) EYES BURNING, ITCHING fluticasone propionate [From Advair Diskus] Allergy (Intermediate, Verified 12/05/16 18:07) HAIRY TONGUE, THROAT RAW Shellfish * [Shellfish] Allergy (Intermediate, Verified 12/05/16 18:07) THROAT SCRATCHY,SWELLING OF FACE, LIPS TINGLY lisinopril [Lisinopril] Allergy (Mild, Verified 12/05/16 18:07) TEETH AND TONGUE FELT FUNNY losartan [Losartan] Allergy (Mild, Verified 12/05/16 18:07) HOARSENESS iodine [Iodine] Allergy (Unknown, Verified 12/05/16 18:07) UNKNOWN dextroamphetamine [From Adderall] Allergy (Verified 12/05/16 18:07) Fish Containing Products Allergy (Verified 12/05/16 18:07) Potassium Clavulanate * [From Augmentin] Allergy (Verified 12/05/16 18:07) salmeterol xinafoate [From Advair Diskus] Allergy (Verified 12/05/16 18:07) oxymorphone HCl [From Opana] Adverse Reaction (Severe, Verified 12/05/16 18:07) VERY SICK aption Allergy (Severe, Uncoded 11/13/16 09:44) LOST VOICE, HOARSENESS, SEVERE SINUS PROBLEMS vicapro Adverse Reaction (Severe, Uncoded 11/13/16 09:44) MADE VERY SICK Past Medical History - General Information source: Patient - Social History Smoking Status: Former Smoker Cigarette use (# per day): No Chew tobacco use (# tins/day): No Frequency of alcohol use: None Drug Abuse: None Lives with: Spouse/Significant other Family History: Reviewed & Not Pertinent Patient has suicidal ideation: No Patient has homicidal ideation: No - Past Medical History Cardiac Medical History: Reports: Hx Hypertension Denies: Hx Coronary Artery Disease, Hx Heart Attack Pulmonary Medical History: Reports: Hx Asthma Denies: Hx Bronchitis, Hx COPD, Hx Pneumonia Neurological Medical History: Reports: Hx Seizures. Denies: Hx Cerebrovascular Accident Endocrine Medical History: Reports: Hx Diabetes Mellitus Type 2 Renal/ Medical History: Denies: Hx Peritoneal Dialysis GI Medical History: Reports: Hx Diverticulitis, Hx Gastroesophageal Reflux Di sease, Hx Irritable Bowel Musculoskeletal Medical History: Reports Hx Arthritis - LEFT ANKLE ARTHRITIS/LOWER BACK Psychiatric Medical History: Denies: Hx Depression Traumatic Medical History: Reports: Hx Fractures Past Surgical History: Reports: Hx Cholecystectomy - 2007, Hx Orthopedic Surgery - L leg surgery 2008, Hx Tubal Ligation. Denies: Hx Pacemaker - Immunizations Hx Diphtheria, Pertussis, Tetanus Vaccination: - PATIENT DENIES Review of Systems - Review of Systems Constitutional: denies: Chills, Fever EENT: No symptoms reported Cardiovascular: denies: Palpitations, Heart racing, Orthopnea, Syncope Respiratory: denies: Cough, Short of breath, Wheezing Gastrointestinal: denies: Abdominal pain, Vomiting Genitourinary: No symptoms reported Female Genitourinary: No symptoms reported Musculoskeletal: See HPI Skin: No symptoms reported Hematologic/Lymphatic: No symptoms reported Neurological/Psychological: No symptoms reported Physical Exam - Vital signs Vitals: Temp Pulse Resp BP Pulse Ox 98.2 F 74 18 134/67 H 94 10/20/18 16:08 10/20/18 16:08 10/20/18 16:08 10/20/18 16:08 10/20/18 16:08 Notes: Physical exam: GENERAL: Patient is alert and oriented x3, no acute distress. Patient does complain of pain when moving her torso and bending to get up out of the stretcher to go to the bathroom. Patient's oxygen saturation is 100% on room air. HEAD: Atraumatic, normocephalic. EYES: Pupils equal round and reactive to light, extraocular movements intact, sclera anicteric, conjunctiva are normal. ENT: TMs normal, nares patent, oropharynx clear without exudates. Moist mucous membranes. NECK: Normal range of motion, supple without obvious mass or JVD. LUNGS: Breath sounds clear to auscultation bilaterally and equal. No wheezes rales or rhonchi. Chest wall: Patient does have tenderness to palpation on the anterior chest wall. HEART: Regular rate and rhythm without murmurs, rubs or gallops. ABDOMEN: Soft, normoactive bowel sounds. No tenderness to palpation. No guarding, no rebound. No masses appreciated. EXTREMITIES: Normal range of motion, no pitting or edema. No clubbing or cyanos is. NEUROLOGICAL: Cranial nerves II through XII grossly intact. Normal speech, moving all extremities. PSYCH: Normal mood, normal affect. SKIN: Warm, Dry, normal turgor, no rashes or lesions noted. Course - Vital Signs Vital signs: Temp Pulse Resp BP Pulse Ox 98.2 F 74 19 137/85 H 96 10/20/18 16:08 10/20/18 16:08 10/20/18 21:00 10/20/18 20:01 10/20/18 21:00 - Laboratory Result Diagrams: 10/20/18 16:40 10/20/18 16:40 Laboratory results interpreted by me: 10/20/18 16:40 Glucose 111 H Alkaline Phosphatase 148 H - Diagnostic Test Radiology reviewed: Image reviewed, Reports reviewed - CTA shows no evidence of acute pulmonary emboli - EKG Interpretation by Me Rhythm: NSR - EKG shows sinus rhythm with a ventricular rate of 62, no T wave/ST changes compared with EKG November 25, 2016 Discharge - Discharge Clinical Impression: Chest wall pain Condition: Stable Disposition: HOME, SELF-CARE Additional Instructions: As we discussed your EKG looked good tonight. Your heart enzymes remain negat celine. Your chest CT showed no evidence of blood clots. I do think you have got inflammation of the chest wall. Take the medicine as prescribed. Do not take ibuprofen when taking the Arthrotec. Continue with your other medicines. I would like you to follow-up with Dr. Sanz in 2-3 days for repeat evaluation. Return to the emergency room for worsening pain. Prescriptions: Diclofenac Sodium/Misoprostol [Arthrotec 50 Ec Tablet] 1 each PO BID #30 tablet. Referrals: TELLO SANZ DO [Primary Care Provider] - 10/22/18
[2018-10-20 21:53] VITALS: BP 143/87
--- NOTE | 2018-10-20 22:50 | EKG REPORT ---
SEVERITY:- ABNORMAL ECG - SINUS RHYTHM NONSPECIFIC T ABNORMALITIES, ANT-LAT LEADS : Confirmed by: Jm Pradhan 20-Oct-2018 22:49:41
== END 2018-10-20 21:53 | disposition home or self-care (01) ==
LOC: ER 15:49
DX: R07.89 Other chest pain (principal); I10 Essential (primary) hypertension; E11.9 Type 2 diabetes mellitus without complications; J45.909 Unspecified asthma, uncomplicated; Z88.0 Allergy status to penicillin; Z88.8 Allergy status to other drugs, medicaments and biological substances; Z88.1 Allergy status to other antibiotic agents; Z91.013 Allergy to seafood; Z87.891 Personal history of nicotine dependence
CPT/HCPCS: 93005; 99284; 96374; 36415; 82553; 82550; 85025; 80053; 84484; 71046; 71275; 93010; J1200

== ENCOUNTER → 2019-09-08 | Outpatient (CLI) | payer OTHER ==
[2019-09-08 14:54] LABS: ALBUMIN 4.3 g/dL (3.5-5.0); ALKALINE PHOSPHATASE 143 U/L (38-126); ASPARTATE AMINO TRANSFERASE 24 U/L (14-36); BILIRUBIN,DIRECT 0.3 mg/dL (0.0-0.4); BILIRUBIN,TOTAL 0.5 mg/dL (0.2-1.3); CHOLESTEROL 130.28 mg/dL (0-200); TOTAL PROTEIN 7.2 g/dL (6.3-8.2); TRIGLYCERIDES 193 mg/dL (<150)
[2019-09-08 15:05] LABS: DIRECT LDL 62 mg/dL (<100)
[2019-09-08 15:11] LABS: VLDL CHOLESTEROL 38.6 mg/dL (10-31)
== END ==
LOC: OD 13:10
PROVIDERS: ATTEND Physician Assistant
DX: E78.5 Hyperlipidemia, unspecified (principal); Z79.899 Other long term (current) drug therapy
CPT/HCPCS: 36415; 80061; 80076